=== PATIENT | female | born 1990 | race Caucasian/White ===

== ENCOUNTER 2020-02-25 19:34 | Emergency (ER) | payer BC ==
[~2020-02-25] VITALS: Ht 182.9 cm; Wt 95.4 kg
[2020-02-25] MEDS ORDERED: HYDROcodone/acetaminophen 10/325mg tab PO STA (19:43)
[2020-02-25] MEDS ORDERED: ondansetron 4mg rapidly disintigrating tab PO ONE (19:55)
[2020-02-25 20:13] VITALS: BP 102/71
[2020-02-25] MEDS ORDERED: ondansetron/PF 4mg/2ml inj IV ONE (20:35)
[2020-02-25] MEDS ORDERED: morphine 2 MG/ML inj. syringe IV PRN (20:35)
[2020-02-25] MEDS ORDERED: ONDA4TAB6 PO (21:39)
[2020-02-25] MEDS ORDERED: HYDR-3965 PO (21:39)
== END 2020-02-25 22:10 | disposition home or self-care (01) ==
LOC: ER 19:35
DX: S82.841A Displaced bimalleolar fracture of right lower leg, initial encounter for closed fracture (principal); M25.571 Pain in right ankle and joints of right foot; M25.561 Pain in right knee; M25.461 Effusion, right knee; Z88.1 Allergy status to other antibiotic agents; Z79.899 Other long term (current) drug therapy; X58.XXXA Exposure to other specified factors, initial encounter; Y93.89 Activity, other specified; Y92.89 Other specified places as the place of occurrence of the external cause; Y99.8 Other external cause status
CPT/HCPCS: 73564; 73600; 99284